=== PATIENT | male | born 1975 | race Caucasian/White ===

== ENCOUNTER → 2017-01-26 | Outpatient (CLI) | payer OTHER ==
[~2017-01-26] MED LIST: ANAPROX DS550 MG PO; DULE1ARO INH; FEROSUL325 MG PO; HYDR12.5C PO; KEFLEX500 MG PO; LEVAQUIN750 M1 PO; MONTELUKAST SOD10 MG PO; MOTRIN800 MG PO; NKHM; PREDNISONE10 MG PO; VENTOLIN H0.09 MG/AC INH; Zestril,Prinivi40 MG PO
== END | disposition home or self-care (01) ==
LOC: US 02:23
DX: N43.3 Hydrocele, unspecified (principal); N44.8 Other noninflammatory disorders of the testis

== ENCOUNTER 2019-12-22 14:25 | Inpatient (IN) | payer OTHER ==
[~2019-12-22] VITALS: Ht 165.1 cm; Wt 124.8 kg
[2019-12-22] VITALS (10 sets, daily range): BP systolic 136–270; BP diastolic 90–150
[2019-12-22 14:44] LABS: ABG BASE EXCESS -5.8 mmol/L (-2.0-2.0); ARTERIAL BLOOD GAS PH 7.205 (7.35-7.45)
--- NOTE | 2019-12-22 14:57 | NUR ---
BASED ON ABG RESULT, RESP TITRATES CPAP DOWN TO 16/8 AT 50% W/ BACKUP OF 8. PT FEELS MUCH, MUCH BETTER, RESP RATE MUCH LOWER, CARDENE STARTED FOR ELEVATED BP.
--- NOTE | 2019-12-22 15:10 | NUR ---
CARDENE TITRATED DOWN FROM 5MG TO 3MG DRIP DUE TO IMPROVEMENT OF BP (SEE)
[2019-12-22 15:20] LABS: BASO % 0.3 % (0.0-1.0); EOS # 0.3 10*3/uL (0.0-0.4); HEMATOCRIT 40.5 % (42.0-52.0); HEMOGLOBIN 12.9 g/dl (14.0-18.0); LYMPH # 1.3 10*3/uL (1.3-4.4); LYMPH % 14.9 % (27.0-41.0); MEAN CELL VOLUME 85.4 fl (80.0-94.0); MEAN CORPUSCULAR HGB 27.2 pg (27.0-31.0); MEAN CORPUSCULAR HGB CONC 31.9 g/dl (33.0-37.0); MEAN PLATELET VOLUME 9.6 fl (9.6-12.3); MONO # 0.4 10*3/uL (0.1-1.0); MONO % 4.6 % (3.0-9.0); NEUT # 6.7 10*3/uL (2.3-7.9); NEUT % 76.7 % (47.0-73.0); PLATELET COUNT AUTOMATED 264 10*3/uL (130-400); RED BLOOD COUNT 4.74 10*6/uL (4.50-5.90); RED CELL DISTRI WIDTH 13.9 % (0-14.5); WHITE BLOOD COUNT 8.7 10*3/uL (4.8-10.8)
--- NOTE | 2019-12-22 15:34 | NUR ---
SINCE TITRATION TO 3MC DRIP ON THE CARDENE, PT BP IS NOW 144/90 MANUALLY.
[2019-12-22 15:35] LABS: ALBUMIN 3.8 gm/dl (3.1-4.5); ALKALINE PHOSPHATASE 85 U/L (45-117); BUN 20 mg/dl (7-24); CHLORIDE 101 mmol/L (98-107); CREATININE 1.13 mg/dL (0.70-1.30); POTASSIUM 3.4 mmol/L (3.5-5.1); SGOT/AST 33 IU/L (3-35); SGPT/ALT 50 U/L (12-78); SODIUM 135 mmol/L (136-145); TOTAL PROTEIN 7.4 gm/dL (6.4-8.2)
--- NOTE | 2019-12-22 15:55 | NUR ---
PT ELEVATES AGAIN, CARDENE RETURNED TO INITIAL 5MG DRIP
--- NOTE | 2019-12-22 16:15 | NUR ---
BED ASSIGNED TO [facility] BUT ADMITTING DR STATES THE CTA MUST BE DONE BEFORE ADMISSION. ADMISSION ON HOLD. RESPIRATORY HERE TO ASSIST.
--- NOTE | 2019-12-22 16:18 | NUR ---
PTY TO CT. I WILL GO THERE WHEN CT IS COMPLETE AND THEN TRANSPORT TO [facility]. CARLO CASTILLO IS WITH PT IN CT NOW.
--- NOTE | 2019-12-22 16:45 | NUR ---
A 44, admitted to ICCU, under the services of KATY Joseph DO with a diagnosis of HYPERTENSIVE EMERGENCY. Chief complaint is SUDDEN ONSET SOB. Patient arrived via stretcher from ER. Monitor applied. Initial assessment completed. Vital signs taken and recorded. KATY JOSEPH DO notified of admission to the unit. Orders received. See assessment for past medical history, medications and allergies. Patient and/or family oriented to unit. [facility] visitation policy reviewed. Clothing/patient valuable form completed. PAIZ
[2019-12-22] MEDS ORDERED: NASAL RELIEF 1215 ML NAS (17:09)
[2019-12-22] MEDS ORDERED: GOOD SENSE IBU200 MG PO (17:10)
--- NOTE | 2019-12-22 17:31 | NUR ---
DR ALEXANDER NOTIFIED OF CONSULTATION. REVIEWED ORDERS, LABS, AND CTA/CXR RESULTS WITH HIM. ORDERS RECEIVED.
[2019-12-22 17:56] LABS: ABG BASE EXCESS 1.3 mmol/L (-2.0-2.0); ARTERIAL BLOOD GAS PH 7.44 (7.35-7.45)
--- NOTE | 2019-12-22 18:15 | NUR ---
ABG'S WERE REPEATED AND CALLED TO DR ALEXANDER BY RESPIRATORY THERAPY. ORDERS RECEIVED.
[2019-12-22 18:18] LABS: BILIRUBIN NEGATIVE (NEGATIVE); BLOOD NEGATIVE (NEGATIVE); CLARITY CLEAR (CLEAR); COLOR STRAW (YELLOW); GLUCOSE NEGATIVE (NEGATIVE); KETONE NEGATIVE (NEGATIVE); LEUKO ESTERASE NEGATIVE (NEGATIVE); NITRITE NEGATIVE (NEGATIVE); SPECIFIC GRAVITY 1.005 (1.005-1.030); UROBILINOGEN 0.2 E.U./dl (0.2-1.0)
[2019-12-22 18:19] LABS: EPITHELIAL CELLS 0-2
--- NOTE | 2019-12-22 18:49 | NUR ---
SALINE BOLUS #1 UP TO INFUSE.
[2019-12-23] VITALS: BP 134/84
[2019-12-23 04:00] VITALS: BP 135/90
[2019-12-23 04:53] LABS: HEMATOCRIT 37.8 % (42.0-52.0); MEAN CELL VOLUME 84.6 fl (80.0-94.0); MEAN CORPUSCULAR HGB 26.8 pg (27.0-31.0); MEAN CORPUSCULAR HGB CONC 31.7 g/dl (33.0-37.0); MEAN PLATELET VOLUME 9.5 fl (9.6-12.3); PLATELET COUNT AUTOMATED 282 10*3/uL (130-400); RED BLOOD COUNT 4.47 10*6/uL (4.50-5.90)
[2019-12-23 05:03] LABS: ACT PARTIAL THROMBO TIME 26.6 SECONDS (20.0-32.1)
[2019-12-23 05:36] LABS: ALBUMIN 3.5 gm/dl (3.1-4.5); ALKALINE PHOSPHATASE 74 U/L (45-117); BUN 17 mg/dl (7-24); CHLORIDE 106 mmol/L (98-107); CHOLESTEROL 177 mg/dL (<200); CREATININE 0.84 mg/dL (0.70-1.30); FREE T4 0.89 ng/dl (0.76-1.46); HDL CHOLESTEROL 53 mg/dl (40-60); LDL CHOLESTEROL 114 mg/dL (9-159); PHOSPHOROUS 3.1 mg/dL (2.5-4.9); SGOT/AST 17 IU/L (3-35); SGPT/ALT 48 U/L (12-78); SODIUM 138 mmol/L (136-145); TOTAL PROTEIN 7.2 gm/dL (6.4-8.2); TRIGLYCERIDES 49 mg/dl (<150); VLDL CHOLESTEROL 10 mg/dL (6-40)
[2019-12-23 05:44] LABS: PLATELET SUFFICIENCY NORMAL (NORMAL); TOTAL CELLS COUNTED 100 #CELLS
[2019-12-23 05:45] LABS: BURR CELLS FEW
[2019-12-23 07:05] LABS: VITAMIN D, 25-HYDROXY 18.1 ng/mL (30-100)
--- NOTE | 2019-12-23 07:06 | NUR ---
Shift chart check completed.24 HR chart check completed.
[2019-12-23 07:30] VITALS: BP 140/90; BP 146/80
--- NOTE | 2019-12-23 09:02 | NUR ---
ON ASSESSMENT PATIENT RESTING EASILY IN HIGH FOWLERS POSITION. RESPIRATIONS NON-LABORED. NASAL CANNULA TITRATED DOWN FROM 4L/MIN TO 2L/MIN MAINTAINING PULSE OX >92%. DR VIZCARRA HAS VISITED. MADE AWARE THAT PT REQUESTING NASAL SPRAY. ALSO MADE AWARE THAT PT HAD BEEN ON ANTIHYPERTENSIVES IN THE PAST BUT STOPPED TAKING THEM DUE TO FINANCIAL REASONS. IV FLUIDS CONTINUE AT 125/HR. SPUTUM CONTAINER AT BEDSIDE BUT PT DOES NOT HAVE A PRODUCTIVE COUGH. SEE ALL APPROPRIATE INTERVENTIONS.
--- NOTE | 2019-12-23 09:30 | NUR ---
LESLEE, NURSING SHADE CLOTH FINISHER, MADE AWARE PT HAS BEEN STEPPED DOWN TO TELEMETRY STATUS.
--- NOTE | 2019-12-23 10:33 | NUR ---
PT SLEEPING SOUNDLY AT THIS TIME. NO RESPIRATORY DISTRESS. PULSE OX 93-94% ON NC 2L/MIN.
--- NOTE | 2019-12-23 10:46 | NUR ---
REPORT TO TAHIR. WILL TRANSFER HIM WHEN HE AWAKENS.
--- NOTE | 2019-12-23 11:41 | NUR ---
TRANSFERRED IN STABLE CONDITION, VIA W/C, ON PORTABLE O2, WITH ALL OF HIS BELONGINGS TO [facility]. ORIENTED TO ROOM, CALL LIGHT, TELEPHONE, BATHROOM.
[2019-12-23 12:00] VITALS: BP 164/94
[2019-12-23 16:00] VITALS: BP 172/98
[2019-12-23 20:00] VITALS: BP 166/110
--- NOTE | 2019-12-23 20:52 | NUR ---
DR PORTILLO NOTIFIED OF PT'S BP 166/110, STATES OK TO GIVE PRN ORDER OF IV LABETOLOL
[2019-12-24] VITALS: BP 155/106
[2019-12-24 01:08] VITALS: BP 172/120
--- NOTE | 2019-12-24 01:14 | NUR ---
PT C/O HEADACHE, BP RECHECK 172/120. DR PORTILLO NOTIFIED.
[2019-12-24 05:56] VITALS: BP 180/120
--- NOTE | 2019-12-24 06:15 | NUR ---
PATIENT CALLS OUT STATES FEELING SOB ON NC, PLACED ON BIPAP AT THIS TIME. SPO2 98%
--- NOTE | 2019-12-24 06:26 | NUR ---
DR PORTILLO NOTIFIED OF PT'S C/O BACK PAIN AND NO PAIN MEDS ORDERED FOR PT. ALSO NOTIFIED OF PT'S BP. NEW ORDERS REC'D.
--- NOTE | 2019-12-24 06:44 | NUR ---
1X MORPHINE GIVEN FOR C/O PAIN TO HEAD AND BACK RATED 5/10. SIDE RAILS UP X2, CALL LIGHT IN REACH, BED IN LOW, LOCKED POS. WILL MONTIOR.
[2019-12-24 06:52] LABS: HEMATOCRIT 39.7 % (42.0-52.0); HEMOGLOBIN 12.6 g/dl (14.0-18.0); LYMPH # 0.9 10*3/uL (1.3-4.4); LYMPH % 8.3 % (27.0-41.0); MEAN CELL VOLUME 85.2 fl (80.0-94.0); MEAN CORPUSCULAR HGB CONC 31.7 g/dl (33.0-37.0); MEAN PLATELET VOLUME 9.9 fl (9.6-12.3); MONO # 0.5 10*3/uL (0.1-1.0); MONO % 4.3 % (3.0-9.0); NEUT # 9.1 10*3/uL (2.3-7.9); NEUT % 86.9 % (47.0-73.0); PLATELET COUNT AUTOMATED 307 10*3/uL (130-400); RED BLOOD COUNT 4.66 10*6/uL (4.50-5.90); RED CELL DISTRI WIDTH 14.4 % (0-14.5); WHITE BLOOD COUNT 10.4 10*3/uL (4.8-10.8)
[2019-12-24 07:15] LABS: BUN 18 mg/dl (7-24); CHLORIDE 107 mmol/L (98-107); CREATININE 0.78 mg/dL (0.70-1.30); SODIUM 137 mmol/L (136-145)
--- NOTE | 2019-12-24 09:00 | NUR ---
Adoption Manager in to talk to patient. Patient states lives at home with roommates. There are no steps in the home. Physician: huy mcclure [facility]acy: [facility] Home health services: none Patient's level of ADLs: INDEPENDENT Patient has working utilities: all working DME: none Follow-up physician's appointment after d/c: will be made by hosptalist nurse director upon discharge Does patient want to access PORTAL?: no Discharge plan discussed with patient, he states he lives at home with 2 roommates he states he is independent in adls and ambulation he states he will return home when medically stable, discussed with him not being able to affford his medication. he stated that he had insurance and was working too many hours and lost is insurance, he stated that was a year ago, he stated he works but not many hours and has [employer] insurance. he stated he was able to afford his medications due to insurance paying for them with no copay, patient denies any home needs at this time, case management will follow . COMPA ARROYO
[2019-12-24 12:00] VITALS: BP 162/100
--- NOTE | 2019-12-24 12:45 | NUR ---
PTS BLOOD PRESSURE 162/100. SPOKE WITH DR. JIM. CATAPRESS ADMINISTERED PER ORDER.
[2019-12-24 16:00] VITALS: BP 168/110
--- NOTE | 2019-12-24 16:24 | NUR ---
PT'S BLOOD PRESSURE 178/98. PULSE 106. SPOKE WITH DR. JIM. LABETALOL ADMINISTERED PER ORDER.
--- NOTE | 2019-12-24 18:28 | NUR ---
DR. JIM NOTIFIED OF PT'S BP OF 162/108
--- NOTE | 2019-12-24 19:52 | NUR ---
PATIENT IS AAOX3, RESTING IN BED WATCHING TV WITH EASY AND REGULAR RESPERS ON 2L O2 VIA NC. ASSESSMENT IS COMPLETE WITH NO C/O OR S/S OF DISTRESS NOTED AT THIS TIME. BED IS LOW, LOCKED, AND CALL LIGHT IS WITHIN REACH. MANUAL BLOOD PRESSURE 150/90, ONE TIME DOSE OF LABETALOL GIVEN. WILL CONTINUE TO MONITOR, SEE SHIFT ASSESSMENT.
[2019-12-25] VITALS (7 sets, daily range): BP systolic 140–202; BP diastolic 92–110
--- NOTE | 2019-12-25 03:37 | NUR ---
24 HR. CHART CHECK COMPLETE.
--- NOTE | 2019-12-25 04:52 | NUR ---
PATIENT C/O SEVERE SHORTNESS OF BREATH. PULSE OX 97% ON 2L VIA NC. PATIENT APPEARS TO BE HAVING PANIC ATTACK, CALL PLACED TO DR. CHASE. JOHANNE REQUESTED, SEE NEW ORDER.
--- NOTE | 2019-12-25 09:00 | NUR ---
case management visits with patient, he states he will return home when medically stable and denies any home needs
--- NOTE | 2019-12-25 11:27 | NUR ---
NOTIFIED OF NO CHANGE IN BP AFTER HYDRALAZINE
--- NOTE | 2019-12-25 11:40 | NUR ---
PHYSICAL THERAPY Attempted to see pt for evaluation however BP 202/110 pt being placed on IV hydralzine per MD notes. Spoke with nursing will defer therapy at this time until BP stable, will follow at a later date. Naomie Rasmussen PT
--- NOTE | 2019-12-25 14:49 | NUR ---
AWARE OF CONSULT
--- NOTE | 2019-12-25 23:56 | NUR ---
PATIENT AWAKE PLAYING ON PHONE, NO NEEDS VOICED AT THIS TIME.
[2019-12-26] VITALS: BP 149/101
--- NOTE | 2019-12-26 01:08 | NUR ---
PATIENT IS SLEEPING WITH EASY AND REGULAR RESPERS ON 2L O2 VIA NC. CALL LIGHT IS WITHIN REACH.
--- NOTE | 2019-12-26 01:53 | NUR ---
PATIENT SLEEPING WITH EASY AND REGULAR RESPERS ON 2L O2 VIA NC. CALL LIGHT IS WITHIN REACH.
--- NOTE | 2019-12-26 03:00 | NUR ---
PATIENT IS SLEEPING WITH EASY AND REGULAR RESPERS ON 2L O2 VIA NC. CALL LIGHT IS WITHIN REACH.
[2019-12-26 08:00] VITALS: BP 178/106
--- NOTE | 2019-12-26 09:00 | NUR ---
case management visits with patient, he states he will return home when medically stable and denies any home needs
--- NOTE | 2019-12-26 11:00 | NUR ---
Physical Therapy evaluation completed on 4th floor with full evaluation to follow. Recommend physical therapy per plan of care and Home w supportive services upon discharge. Thank you for this referral. Naomie Rasmussen PT
[2019-12-26 12:00] VITALS: BP 149/104
--- NOTE | 2019-12-26 13:55 | NUR ---
PHYSICAL THERAPY Patient seen this pm 1;1 for therapy visit and was sitting up in bedside chair upon therapist arrival. Patient identified by name / and was very friendly this afternoon, eager to get up and move around. Patient reported no new c/o's since initial evaluation and transfers sit to stand SBA x 1. Patient ambulates without AD, ad david in hallway, 150'x 2, demonstrating slight R side deviation x 1 episode, then was able to correct following v/c for visual fixation technique. Patient also demonstrated increaed fatigue and needed brief standing rest break < 30 seconds prior to return to bedside chair. Patient resting SpO2 96%, HR 98 bpm and recorded following gait ex at 93% SpO2, HR 118 bpm. After seated rest break SpO2 98%, HR 110 bpm. Patient remained in chair with call light, tray table and telephone. Will continue per POC as tolerated, total treatment time 18 minutes. Keven Newman, KILN PLACER
[2019-12-26 16:00] VITALS: BP 154/104
--- NOTE | 2019-12-26 17:10 | NUR ---
NOTIFIED DR JIM OF PT BP 154/104 WITH HR 104 PER CM.
[2019-12-26 20:00] VITALS: BP 152/95
--- NOTE | 2019-12-26 23:30 | NUR ---
Pt is not in need of his PRN BiPap order at this time.
[2019-12-27] VITALS: BP 145/90
[2019-12-27 06:25] LABS: BASO % 0.1 % (0.0-1.0); EOS # 0.1 10*3/uL (0.0-0.4); HEMATOCRIT 42.2 % (42.0-52.0); HEMOGLOBIN 13.8 g/dl (14.0-18.0); LYMPH # 2.6 10*3/uL (1.3-4.4); LYMPH % 31.6 % (27.0-41.0); MEAN CELL VOLUME 83.6 fl (80.0-94.0); MEAN CORPUSCULAR HGB 27.3 pg (27.0-31.0); MEAN CORPUSCULAR HGB CONC 32.7 g/dl (33.0-37.0); MEAN PLATELET VOLUME 9.6 fl (9.6-12.3); MONO # 0.7 10*3/uL (0.1-1.0); MONO % 9.1 % (3.0-9.0); NEUT # 4.7 10*3/uL (2.3-7.9); NEUT % 57.8 % (47.0-73.0); PLATELET COUNT AUTOMATED 273 10*3/uL (130-400); RED BLOOD COUNT 5.05 10*6/uL (4.50-5.90); RED CELL DISTRI WIDTH 14.5 % (0-14.5); WHITE BLOOD COUNT 8.1 10*3/uL (4.8-10.8)
[2019-12-27 08:00] VITALS: BP 158/114
--- NOTE | 2019-12-27 09:00 | NUR ---
case management visits with patient, he will return home when medically stable, [facility] [place] [place], tenative discharge is for today, case management will follow
[2019-12-27 11:00] VITALS: BP 158/100
--- NOTE | 2019-12-27 11:47 | NUR ---
DR MARCUM ROUNDED AND NOTIFIED OF PT BP. MANUAL BP TAKEN AT THIS TIME ON RIGHT ARM 168/120. LEFT ARM 154/104. PER DR MARCUM'S NEW ORDER THIS NURSE ADMINISTERED THE PRN 0.1 MG CLONIDINE.
[2019-12-27 12:37] VITALS: BP 128/88
--- NOTE | 2019-12-27 12:51 | NUR ---
PHYSICAL THERAPY TREATMENT TIME: 12:42 PM - 1:00 PM 18 MINUTES TOTAL Patient presented to therapy in sitting in bedside chair and report of no pain and feeling good. B/P 120/88. Patient is not on spO2. Patient gives informed consent for treatment. Patient was identified by name and on wristband. Patient completed sit to stand from low chair with SBA. Patient ambulated a total of 500+ ft. around entire 4th floor with Close Supervision and no assistive device. Patient ascended and descended x 10 steps with use of hand rail on one side with SBA. Patient was left in bedside chair with call light within reach. Patient was 1:1 with this PROCESS TECH for 18 minutes total. BRIGID GIRALDO PROCESS TECH
[2019-12-27] MEDS ORDERED: PREDNISONE10 MG PO (12:59)
[2019-12-27] MEDS ORDERED: DOXYCYCLINE100 M3 PO (12:59)
[2019-12-27] MEDS ORDERED: AMLODIPINE BESYL5 MG PO (12:59)
[2019-12-27] MEDS ORDERED: VITAMIN D350 MC2 PO (12:59)
[2019-12-27] MEDS ORDERED: K-TAB10 MEQ PO (13:00)
[2019-12-27] MEDS ORDERED: LASIX20 MG PO (13:00)
--- NOTE | 2019-12-27 15:09 | NUR ---
Discharge instructions reviewed with patient/family. Patient receptive and verbalizes understanding. Follow-up care arranged. Written instructions given to patient/family. FABIOLA POLLARD
[2019-12-28 08:12] LABS: ADENOVIRUS Negative (Negative); INFLUENZA A Negative (Negative); INFLUENZA B Negative (Negative); METAPNEUMOVIRUS Negative (Negative); PARAINFLUENZA 1 Negative (Negative); PARAINFLUENZA 2 Negative (Negative); PARAINFLUENZA 3 Negative (Negative); RHINOVIRUS Negative (Negative); RSV A Negative (Negative); RSV B Negative (Negative)
--- NOTE | 2019-12-31 07:45 | NUR ---
PHYSICAL THERAPY CO-SIGN I approve of the Physical Therapy notes written above. Naomie Rasmussen PT
== END 2019-12-27 15:09 | disposition home or self-care (01) | DRG 720 ==
LOC: ED 14:25 → EDHOLD 15:58 → 4E 15:58 → ICCU 16:08 → 4E 12-23 11:41
PROVIDERS: Emergency Medicine; Internal Medicine; Internal Medicine Critical Care Medicine; ADMIT Internal Medicine
PROC: 5A09357 Assistance with Respiratory Ventilation, Less than 24 Consecutive Hours, Continuous Positive Airway Pressure (ICD-10-PCS; principal; 2019-12-22)
PROC: 5A09357 Assistance with Respiratory Ventilation, Less than 24 Consecutive Hours, Continuous Positive Airway Pressure (ICD-10-PCS; 2019-12-23)
DX: A41.9 Sepsis, unspecified organism (principal); J96.01 Acute respiratory failure with hypoxia; R65.20 Severe sepsis without septic shock; E66.01 Morbid (severe) obesity due to excess calories; I16.1 Hypertensive emergency; F12.129 Cannabis abuse with intoxication, unspecified; F32.9 Major depressive disorder, single episode, unspecified; I11.0 Hypertensive heart disease with heart failure; I50.32 Chronic diastolic (congestive) heart failure; J96.02 Acute respiratory failure with hypercapnia; J18.9 Pneumonia, unspecified organism; E87.1 Hypo-osmolality and hyponatremia; E87.6 Hypokalemia; R73.9 Hyperglycemia, unspecified; D64.9 Anemia, unspecified; J45.21 Mild intermittent asthma with (acute) exacerbation; J44.1 Chronic obstructive pulmonary disease with (acute) exacerbation; J44.0 Chronic obstructive pulmonary disease with (acute) lower respiratory infection; J40 Bronchitis, not specified as acute or chronic; G47.33 Obstructive sleep apnea (adult) (pediatric); Z87.891 Personal history of nicotine dependence; Z68.43 Body mass index [BMI] 50.0-59.9, adult; Z88.6 Allergy status to analgesic agent; Z88.8 Allergy status to other drugs, medicaments and biological substances; Z79.899 Other long term (current) drug therapy; Z83.6 Family history of other diseases of the respiratory system; Z80.1 Family history of malignant neoplasm of trachea, bronchus and lung; Z80.3 Family history of malignant neoplasm of breast; Z71.3 Dietary counseling and surveillance

== ENCOUNTER → 2020-04-04 | Outpatient (CLI) | payer OTHER ==
[~2020-04-04] MED LIST changes: +AMLODIPINE BESYL5 MG PO; +DOXYCYCLINE100 M3 PO; +GOOD SENSE IBU200 MG PO; +K-TAB10 MEQ PO; +LASIX20 MG PO; +NASAL RELIEF 1215 ML NAS; +VITAMIN D350 MC2 PO
== END | disposition home or self-care (01) ==
LOC: CP 10:25
DX: R06.02 Shortness of breath (principal); Z87.891 Personal history of nicotine dependence

== ENCOUNTER → 2020-08-01 | Outpatient (CLI) | payer OTHER | END | disposition home or self-care (01) | LOC: COVID19 04:47 | PROVIDERS: ATTEND Family Medicine | DX: Z20.828 Contact with and (suspected) exposure to other viral communicable diseases (principal) ==

== ENCOUNTER 2020-08-26 12:03 | Inpatient (IN) | payer OTHER ==
[~2020-08-26] VITALS: Ht 165.1 cm; Wt 126.1 kg
[2020-08-26] VITALS (7 sets, daily range): BP systolic 145–176; BP diastolic 95–116
[2020-08-26 13:23] LABS: BASO % 0.3 % (0.0-1.0); EOS # 0.1 10*3/uL (0.0-0.4); EOS % 0.7 % (1.0-4.0); HEMATOCRIT 43.1 % (42.0-52.0); LYMPH # 0.7 10*3/uL (1.3-4.4); LYMPH % 9.2 % (27.0-41.0); MEAN CELL VOLUME 81.5 fl (80.0-94.0); MEAN CORPUSCULAR HGB 25.9 pg (27.0-31.0); MEAN CORPUSCULAR HGB CONC 31.8 g/dl (33.0-37.0); MEAN PLATELET VOLUME 8.7 fl (9.6-12.3); MONO # 0.7 10*3/uL (0.1-1.0); MONO % 10.5 % (3.0-9.0); NEUT # 5.6 10*3/uL (2.3-7.9); NEUT % 78.9 % (47.0-73.0); PLATELET COUNT AUTOMATED 293 10*3/uL (130-400); RED BLOOD COUNT 5.29 10*6/uL (4.50-5.90); RED CELL DISTRI WIDTH 14.5 % (0-14.5); WHITE BLOOD COUNT 7.1 10*3/uL (4.8-10.8)
[2020-08-26 13:34] LABS: ACT PARTIAL THROMBO TIME 29.1 SECONDS (20.0-32.1)
[2020-08-26 13:43] LABS: ALBUMIN 3.9 gm/dl (3.1-4.5); ALKALINE PHOSPHATASE 84 U/L (45-117); BUN 11 mg/dl (7-24); CHLORIDE 103 mmol/L (98-107); POTASSIUM 3.5 mmol/L (3.5-5.1); SGOT/AST 18 IU/L (3-35); SGPT/ALT 42 U/L (12-78); SODIUM 137 mmol/L (136-145); TOTAL PROTEIN 8.1 gm/dL (6.4-8.2)
[2020-08-26 13:47] LABS: TROPONIN I < 0.015 ng/ml (<0.045)
[2020-08-26] MEDS ORDERED: K-TAB10 MEQ PO (18:47)
[2020-08-26] MEDS ORDERED: FLONASE ALLERG9.9 ML NAS (18:48)
[2020-08-26] MEDS ORDERED: ZESTRIL20 MG PO (18:48)
[2020-08-27] VITALS: BP 137/74
[2020-08-27 06:25] LABS: BASO % 0.2 % (0.0-1.0); HEMATOCRIT 42.1 % (42.0-52.0); LYMPH # 0.7 10*3/uL (1.3-4.4); LYMPH % 11.6 % (27.0-41.0); MEAN CELL VOLUME 84.4 fl (80.0-94.0); MEAN CORPUSCULAR HGB 26.5 pg (27.0-31.0); MEAN CORPUSCULAR HGB CONC 31.4 g/dl (33.0-37.0); MEAN PLATELET VOLUME 9.1 fl (9.6-12.3); MONO # 0.2 10*3/uL (0.1-1.0); MONO % 3.5 % (3.0-9.0); NEUT # 5.1 10*3/uL (2.3-7.9); PLATELET COUNT AUTOMATED 284 10*3/uL (130-400); RED BLOOD COUNT 4.99 10*6/uL (4.50-5.90); RED CELL DISTRI WIDTH 14.7 % (0-14.5); WHITE BLOOD COUNT 6.1 10*3/uL (4.8-10.8)
[2020-08-27 06:49] LABS: ALBUMIN 3.7 gm/dl (3.1-4.5); BUN 16 mg/dl (7-24); CHLORIDE 102 mmol/L (98-107); CREATININE 0.88 mg/dL (0.70-1.30); SGOT/AST 19 IU/L (3-35); SGPT/ALT 40 U/L (12-78); SODIUM 135 mmol/L (136-145)
[2020-08-27 06:51] LABS: ALKALINE PHOSPHATASE 77 U/L (45-117); TOTAL PROTEIN 7.9 gm/dL (6.4-8.2)
[2020-08-27 08:00] VITALS: BP 138/80
[2020-08-27 12:00] VITALS: BP 145/86
[2020-08-27 16:00] VITALS: BP 165/98
[2020-08-27 20:00] VITALS: BP 157/110
[2020-08-28] VITALS (9 sets, daily range): BP systolic 141–172; BP diastolic 83–106
[2020-08-29 00:30] VITALS: BP 148/92
[2020-08-29 08:00] VITALS: BP 173/109
[2020-08-29 11:00] VITALS: BP 162/98
[2020-08-29] MEDS ORDERED: PREDNISONE10 MG PO (12:17)
[2020-08-29] MEDS ORDERED: Zestril,Prinivi40 MG PO (12:17)
== END 2020-08-29 13:17 | disposition home or self-care (01) | DRG 141 ==
LOC: ED 12:03 → EDHOLD 14:45 → 5E 14:45
PROVIDERS: Emergency Medicine; Student in an Organized Health Care Education/Training Program; ADMIT Internal Medicine; ATTEND Internal Medicine
DX: J45.901 Unspecified asthma with (acute) exacerbation (principal); J96.91 Respiratory failure, unspecified with hypoxia; E83.41 Hypermagnesemia; D64.9 Anemia, unspecified; R73.9 Hyperglycemia, unspecified; F32.9 Major depressive disorder, single episode, unspecified; R00.0 Tachycardia, unspecified; F12.90 Cannabis use, unspecified, uncomplicated; E66.01 Morbid (severe) obesity due to excess calories; I50.32 Chronic diastolic (congestive) heart failure; I11.0 Hypertensive heart disease with heart failure; Z68.42 Body mass index [BMI] 45.0-49.9, adult; Z87.19 Personal history of other diseases of the digestive system; Z87.891 Personal history of nicotine dependence; Z88.8 Allergy status to other drugs, medicaments and biological substances; Z88.6 Allergy status to analgesic agent; Z80.1 Family history of malignant neoplasm of trachea, bronchus and lung; Z80.3 Family history of malignant neoplasm of breast; Z82.5 Family history of asthma and other chronic lower respiratory diseases; Z82.3 Family history of stroke; Z82.49 Family history of ischemic heart disease and other diseases of the circulatory system; Z87.01 Personal history of pneumonia (recurrent); Z79.899 Other long term (current) drug therapy

== ENCOUNTER 2020-11-25 13:47 | Emergency (ER) | payer OTHER ==
[~2020-11-25] VITALS: Wt 127.0 kg
[~2020-11-25 13:47] MED LIST changes: +FLONASE ALLERG9.9 ML NAS; +ZESTRIL20 MG PO
[2020-11-25 14:01] LABS: BASO % 0.5 % (0.0-1.0); EOS # 0.3 10*3/uL (0.0-0.4); EOS % 4.2 % (1.0-4.0); HEMATOCRIT 40.1 % (42.0-52.0); LYMPH # 1.7 10*3/uL (1.3-4.4); LYMPH % 27.9 % (27.0-41.0); MEAN CELL VOLUME 83.7 fl (80.0-94.0); MEAN CORPUSCULAR HGB 26.9 pg (27.0-31.0); MEAN CORPUSCULAR HGB CONC 32.2 g/dl (33.0-37.0); MONO # 0.5 10*3/uL (0.1-1.0); MONO % 8.4 % (3.0-9.0); NEUT # 3.6 10*3/uL (2.3-7.9); NEUT % 58.4 % (47.0-73.0); PLATELET COUNT AUTOMATED 286 10*3/uL (130-400); RED BLOOD COUNT 4.79 10*6/uL (4.50-5.90); RED CELL DISTRI WIDTH 14.6 % (0-14.5); WHITE BLOOD COUNT 6.2 10*3/uL (4.8-10.8)
[2020-11-25 14:18] LABS: ACT PARTIAL THROMBO TIME 27.7 SECONDS (20.0-32.1); ALBUMIN 3.5 gm/dl (3.1-4.5); ALKALINE PHOSPHATASE 75 U/L (45-117); BUN 13 mg/dl (7-24); CHLORIDE 105 mmol/L (98-107); CREATININE 0.85 mg/dL (0.70-1.30); INTERNATIONAL NORM RATIO 0.9 (2.0-3.5); POTASSIUM 3.4 mmol/L (3.5-5.1); SGOT/AST 13 IU/L (3-35); SGPT/ALT 36 U/L (12-78); SODIUM 138 mmol/L (136-145); TOTAL PROTEIN 6.9 gm/dL (6.4-8.2)
[2020-11-25 14:19] LABS: TROPONIN I < 0.015 ng/ml (<0.045)
[2020-11-25] MEDS ORDERED: PREDNISONE50 MG PO (16:41)
== END 2020-11-25 17:23 | disposition home or self-care (01) ==
LOC: ED 13:47
PROVIDERS: Emergency Medicine
DX: J45.901 Unspecified asthma with (acute) exacerbation (principal); I10 Essential (primary) hypertension; F31.9 Bipolar disorder, unspecified; Z88.8 Allergy status to other drugs, medicaments and biological substances; Z79.899 Other long term (current) drug therapy; Z98.890 Other specified postprocedural states; Z20.822 Contact with and (suspected) exposure to COVID-19; Z87.891 Personal history of nicotine dependence

== ENCOUNTER 2022-01-26 22:57 | Emergency (ER) | payer OTHER ==
[~2022-01-26] VITALS: Ht 157.4 cm; Wt 93.9 kg
[~2022-01-26 22:57] MED LIST changes: +PREDNISONE50 MG PO
[2022-01-26 23:54] LABS: BASO % 0.5 % (0.0-1.0); EOS # 0.1 10*3/uL (0.0-0.4); EOS % 1.7 % (1.0-4.0); HEMATOCRIT 38.9 % (42.0-52.0); LYMPH # 1.6 10*3/uL (1.3-4.4); LYMPH % 20.3 % (27.0-41.0); MEAN CELL VOLUME 81.7 fl (80.0-94.0); MEAN CORPUSCULAR HGB 26.9 pg (27.0-31.0); MEAN CORPUSCULAR HGB CONC 32.9 g/dl (33.0-37.0); MEAN PLATELET VOLUME 8.6 fl (9.6-12.3); MONO # 0.5 10*3/uL (0.1-1.0); NEUT # 5.4 10*3/uL (2.3-7.9); NEUT % 70.1 % (47.0-73.0); PLATELET COUNT AUTOMATED 276 10*3/uL (130-400); RED BLOOD COUNT 4.76 10*6/uL (4.50-5.90); RED CELL DISTRI WIDTH 15.1 % (0-14.5); WHITE BLOOD COUNT 7.7 10*3/uL (4.8-10.8)
[2022-01-27 00:09] LABS: ALKALINE PHOSPHATASE 63 U/L (45-117); BUN 15 mg/dl (7-24); CHLORIDE 103 mmol/L (98-107); POTASSIUM 3.7 mmol/L (3.5-5.1); SGOT/AST 20 IU/L (3-35); SGPT/ALT 38 U/L (12-78); SODIUM 137 mmol/L (136-145)
[2022-01-27 00:30] LABS: BILIRUBIN Negative (Negative); BLOOD Negative (Negative); CLARITY Clear (Clear); COLOR Yellow (Yellow); GLUCOSE Negative (Negative); KETONE Trace (Negative); LEUKO ESTERASE Negative (Negative); NITRITE Negative (Negative); PH 5.5 (4.5-8.0); SPECIFIC GRAVITY 1.025 (1.001-1.030)
[2022-01-27] MEDS ORDERED: CYCLOBENZAPRINE10 MG PO (03:36)
[2022-01-27] MEDS ORDERED: MEDROL DOSEPAK4 MG PO (03:36)
== END 2022-01-27 03:57 | disposition home or self-care (01) ==
LOC: ED 22:57
PROVIDERS: Emergency Medicine
DX: M54.32 Sciatica, left side (principal); J45.909 Unspecified asthma, uncomplicated; Z88.8 Allergy status to other drugs, medicaments and biological substances; Z88.6 Allergy status to analgesic agent; Z79.899 Other long term (current) drug therapy; Z90.89 Acquired absence of other organs; Z98.890 Other specified postprocedural states

== ENCOUNTER → 2022-02-08 | Outpatient (CLI) | payer OTHER ==
[~2022-02-08] MED LIST changes: +CYCLOBENZAPRINE10 MG PO; +MEDROL DOSEPAK4 MG PO
== END | disposition home or self-care (01) ==
LOC: RAD 11:20
PROVIDERS: ATTEND Student in an Organized Health Care Education/Training Program
DX: M51.37 Other intervertebral disc degeneration, lumbosacral region (principal); M51.34 Other intervertebral disc degeneration, thoracic region

== ENCOUNTER 2022-09-26 12:47 | Inpatient (IN) | payer OTHER ==
[~2022-09-26] VITALS: Ht 165.1 cm; Wt 133.6 kg
[2022-09-26 12:55] VITALS: BP 145/92
[2022-09-26 13:20] LABS: BASO % 0.4 % (0.0-1.0); EOS # 0.1 10*3/uL (0.0-0.4); EOS % 1.9 % (1.0-4.0); HEMATOCRIT 41.1 % (42.0-52.0); LYMPH % 20.1 % (27.0-41.0); MEAN CELL VOLUME 85.3 fl (80.0-94.0); MEAN CORPUSCULAR HGB CONC 32.8 g/dl (33.0-37.0); MEAN PLATELET VOLUME 8.8 fl (9.6-12.3); MONO # 0.7 10*3/uL (0.1-1.0); MONO % 13.5 % (3.0-9.0); NEUT # 3.1 10*3/uL (2.3-7.9); NEUT % 63.9 % (47.0-73.0); PLATELET COUNT AUTOMATED 244 10*3/uL (130-400); RED BLOOD COUNT 4.82 10*6/uL (4.50-5.90); RED CELL DISTRI WIDTH 14.9 % (0-14.5); WHITE BLOOD COUNT 4.8 10*3/uL (4.8-10.8)
[2022-09-26] MEDS ORDERED: NORVASC10 MG PO (13:34)
[2022-09-26] MEDS ORDERED: NAPROXEN500 M1 PO (13:34)
[2022-09-26] MEDS ORDERED: NEURONTIN300 MG PO (13:35)
[2022-09-26 13:49] LABS: ALKALINE PHOSPHATASE 65 U/L (46-116); BUN 12 mg/dl (9-23); CHLORIDE 103 mmol/L (98-107); CREATININE 0.77 mg/dL (0.70-1.30); POTASSIUM 3.5 mmol/L (3.4-5.1); SGPT/ALT 40 U/L (10-49); SODIUM 139 mmol/L (136-145)
[2022-09-26 18:52] VITALS: BP 149/104
[2022-09-26 22:59] VITALS: BP 144/81
[2022-09-27 05:28] LABS: ALKALINE PHOSPHATASE 70 U/L (46-116); BUN 16 mg/dl (9-23); CHLORIDE 101 mmol/L (98-107); CREATININE 0.74 mg/dL (0.70-1.30); POTASSIUM 4.1 mmol/L (3.4-5.1); SGPT/ALT 43 U/L (10-49); SODIUM 138 mmol/L (136-145); TOTAL PROTEIN 7.4 gm/dL (6.0-8.0)
[2022-09-27 06:24] LABS: BASO % 0.2 % (0.0-1.0); HEMATOCRIT 43.9 % (42.0-52.0); LYMPH # 0.6 10*3/uL (1.3-4.4); LYMPH % 13.1 % (27.0-41.0); MEAN CELL VOLUME 85.4 fl (80.0-94.0); MEAN CORPUSCULAR HGB 26.8 pg (27.0-31.0); MEAN CORPUSCULAR HGB CONC 31.4 g/dl (33.0-37.0); MEAN PLATELET VOLUME 9.3 fl (9.6-12.3); MONO # 0.1 10*3/uL (0.1-1.0); MONO % 1.7 % (3.0-9.0); NEUT % 84.6 % (47.0-73.0); PLATELET COUNT AUTOMATED 297 10*3/uL (130-400); RED BLOOD COUNT 5.14 10*6/uL (4.50-5.90); RED CELL DISTRI WIDTH 14.6 % (0-14.5); WHITE BLOOD COUNT 4.7 10*3/uL (4.8-10.8)
[2022-09-27 07:55] VITALS: BP 164/104
[2022-09-27 11:22] VITALS: BP 134/100
[2022-09-27 16:22] VITALS: BP 152/103
[2022-09-27 19:45] VITALS: BP 150/100
[2022-09-27 22:40] VITALS: BP 134/83
[2022-09-28 07:24] LABS: BASO % 0.1 % (0.0-1.0); HEMATOCRIT 42.6 % (42.0-52.0); LYMPH # 0.8 10*3/uL (1.3-4.4); LYMPH % 8.7 % (27.0-41.0); MEAN CELL VOLUME 86.2 fl (80.0-94.0); MEAN CORPUSCULAR HGB 28.1 pg (27.0-31.0); MEAN CORPUSCULAR HGB CONC 32.6 g/dl (33.0-37.0); MEAN PLATELET VOLUME 9.2 fl (9.6-12.3); MONO # 0.2 10*3/uL (0.1-1.0); MONO % 1.9 % (3.0-9.0); NEUT # 8.5 10*3/uL (2.3-7.9); PLATELET COUNT AUTOMATED 295 10*3/uL (130-400); RED BLOOD COUNT 4.94 10*6/uL (4.50-5.90); RED CELL DISTRI WIDTH 14.9 % (0-14.5); WHITE BLOOD COUNT 9.5 10*3/uL (4.8-10.8)
[2022-09-28 07:45] LABS: BUN 22 mg/dl (9-23); CHLORIDE 102 mmol/L (98-107); CREATININE 0.83 mg/dL (0.70-1.30); POTASSIUM 4.4 mmol/L (3.4-5.1); SODIUM 139 mmol/L (136-145)
[2022-09-28 12:00] VITALS: BP 139/96
[2022-09-28 16:00] VITALS: BP 164/90
[2022-09-28 17:41] VITALS: BP 156/86
[2022-09-28 20:00] VITALS: BP 152/88
[2022-09-29] VITALS (10 sets, daily range): BP systolic 131–180; BP diastolic 84–110
[2022-09-30] VITALS: BP 170/100
[2022-09-30 07:43] LABS: BASO % 0.1 % (0.0-1.0); HEMATOCRIT 39.6 % (42.0-52.0); LYMPH # 1.1 10*3/uL (1.3-4.4); LYMPH % 12.6 % (27.0-41.0); MEAN CELL VOLUME 83.2 fl (80.0-94.0); MEAN CORPUSCULAR HGB 27.7 pg (27.0-31.0); MEAN CORPUSCULAR HGB CONC 33.3 g/dl (33.0-37.0); MEAN PLATELET VOLUME 9.2 fl (9.6-12.3); MONO # 0.4 10*3/uL (0.1-1.0); MONO % 5.1 % (3.0-9.0); NEUT # 6.8 10*3/uL (2.3-7.9); PLATELET COUNT AUTOMATED 279 10*3/uL (130-400); RED BLOOD COUNT 4.76 10*6/uL (4.50-5.90); RED CELL DISTRI WIDTH 14.6 % (0-14.5); WHITE BLOOD COUNT 8.4 10*3/uL (4.8-10.8)
[2022-09-30 07:56] LABS: BUN 26 mg/dl (9-23); CHLORIDE 102 mmol/L (98-107); CREATININE 0.64 mg/dL (0.70-1.30); POTASSIUM 4.4 mmol/L (3.4-5.1); SODIUM 138 mmol/L (136-145)
[2022-09-30 08:00] VITALS: BP 151/108
[2022-09-30 12:00] VITALS: BP 143/106
[2022-09-30 16:00] VITALS: BP 141/72
[2022-09-30 20:00] VITALS: BP 154/96
[2022-10-01] VITALS: BP 132/80
[2022-10-01 07:00] LABS: BASO % 0.1 % (0.0-1.0); HEMATOCRIT 39.4 % (42.0-52.0); LYMPH % 22.9 % (27.0-41.0); MEAN CELL VOLUME 84.4 fl (80.0-94.0); MEAN CORPUSCULAR HGB 27.6 pg (27.0-31.0); MEAN CORPUSCULAR HGB CONC 32.7 g/dl (33.0-37.0); MEAN PLATELET VOLUME 9.1 fl (9.6-12.3); MONO % 11.6 % (3.0-9.0); NEUT # 5.6 10*3/uL (2.3-7.9); NEUT % 64.4 % (47.0-73.0); PLATELET COUNT AUTOMATED 251 10*3/uL (130-400); RED BLOOD COUNT 4.67 10*6/uL (4.50-5.90); RED CELL DISTRI WIDTH 14.7 % (0-14.5); WHITE BLOOD COUNT 8.7 10*3/uL (4.8-10.8)
[2022-10-01 07:13] LABS: BUN 24 mg/dl (9-23); CHLORIDE 102 mmol/L (98-107); CREATININE 0.66 mg/dL (0.70-1.30); SODIUM 138 mmol/L (136-145)
[2022-10-01 08:00] VITALS: BP 144/106
[2022-10-01 12:00] VITALS: BP 154/92
[2022-10-01] MEDS ORDERED: DOXYCYCLINE HY100 M3 PO (14:07)
[2022-10-01] MEDS ORDERED: PREDNISONE10 MG PO (14:07)
[2022-10-01] MEDS ORDERED: 'CLONIDINE0.1 MG PO (14:07)
[2022-10-05 18:06] LABS: METANEPHRINE, PLASMA <10.0 pg/mL (0.0-88.0); NORMETANEPHRINE, PLASMA 37.2 pg/mL (0.0-218.9)
[2022-10-06 11:07] LABS: RENIN ACTIVITY (PLASMA) 2.292 ng/mL/hr (0.167-5.380)
== END 2022-10-01 15:00 | disposition home or self-care (01) | DRG 140 ==
LOC: ED 12:47 → EDHOLD 14:21 → 5E 14:21 → EDHOLD 14:50 → 5E 09-27 20:00
PROVIDERS: Family Medicine; Student in an Organized Health Care Education/Training Program; ADMIT Internal Medicine; ATTEND Internal Medicine
PROC: 5A09357 Assistance with Respiratory Ventilation, Less than 24 Consecutive Hours, Continuous Positive Airway Pressure (ICD-10-PCS; principal; 2022-09-27)
PROC: 5A09357 Assistance with Respiratory Ventilation, Less than 24 Consecutive Hours, Continuous Positive Airway Pressure (ICD-10-PCS; 2022-09-28)
PROC: 5A09357 Assistance with Respiratory Ventilation, Less than 24 Consecutive Hours, Continuous Positive Airway Pressure (ICD-10-PCS; 2022-09-30)
PROC: 5A09357 Assistance with Respiratory Ventilation, Less than 24 Consecutive Hours, Continuous Positive Airway Pressure (ICD-10-PCS; 2022-10-01)
DX: J44.1 Chronic obstructive pulmonary disease with (acute) exacerbation (principal); J96.01 Acute respiratory failure with hypoxia; J45.901 Unspecified asthma with (acute) exacerbation; I50.32 Chronic diastolic (congestive) heart failure; E66.01 Morbid (severe) obesity due to excess calories; I11.0 Hypertensive heart disease with heart failure; D64.9 Anemia, unspecified; R73.9 Hyperglycemia, unspecified; F17.210 Nicotine dependence, cigarettes, uncomplicated; F12.10 Cannabis abuse, uncomplicated; E55.9 Vitamin D deficiency, unspecified; F32.A Depression, unspecified; G47.33 Obstructive sleep apnea (adult) (pediatric); Z80.1 Family history of malignant neoplasm of trachea, bronchus and lung; Z80.3 Family history of malignant neoplasm of breast; Z83.6 Family history of other diseases of the respiratory system; Z88.8 Allergy status to other drugs, medicaments and biological substances; Z68.42 Body mass index [BMI] 45.0-49.9, adult

== ENCOUNTER → 2022-10-04 | Outpatient (CLI) | payer OTHER ==
[~2022-10-04] MED LIST changes: +'CLONIDINE0.1 MG PO; +DOXYCYCLINE HY100 M3 PO; +NAPROXEN500 M1 PO; +NEURONTIN300 MG PO; +NORVASC10 MG PO
[2022-10-04 11:35] LABS: BASO % 0.1 % (0.0-1.0); EOS # 0.1 10*3/uL (0.0-0.4); EOS % 0.5 % (1.0-4.0); HEMATOCRIT 41.7 % (42.0-52.0); LYMPH # 2.2 10*3/uL (1.3-4.4); LYMPH % 19.6 % (27.0-41.0); MEAN CELL VOLUME 80.7 fl (80.0-94.0); MEAN CORPUSCULAR HGB 27.3 pg (27.0-31.0); MEAN CORPUSCULAR HGB CONC 33.8 g/dl (33.0-37.0); MONO # 0.8 10*3/uL (0.1-1.0); MONO % 7.4 % (3.0-9.0); NEUT # 7.9 10*3/uL (2.3-7.9); NEUT % 71.5 % (47.0-73.0); PLATELET COUNT AUTOMATED 276 10*3/uL (130-400); RED BLOOD COUNT 5.17 10*6/uL (4.50-5.90); RED CELL DISTRI WIDTH 14.3 % (0-14.5)
[2022-10-04 11:55] LABS: ALKALINE PHOSPHATASE 55 U/L (46-116); BUN 20 mg/dl (9-23); CHLORIDE 101 mmol/L (98-107); CREATININE 0.75 mg/dL (0.70-1.30); SGPT/ALT 32 U/L (10-49); SODIUM 138 mmol/L (136-145); TOTAL PROTEIN 6.4 gm/dL (6.0-8.0)
== END | disposition home or self-care (01) ==
LOC: LAB 11:02
PROVIDERS: ATTEND Internal Medicine
DX: J96.01 Acute respiratory failure with hypoxia (principal); R74.01 Elevation of levels of liver transaminase levels; R73.9 Hyperglycemia, unspecified; D64.9 Anemia, unspecified

== ENCOUNTER → 2022-12-29 | Outpatient (CLI) | payer OTHER | END | disposition home or self-care (01) | LOC: LAB 12:17 | PROVIDERS: ATTEND Family Medicine | DX: D64.9 Anemia, unspecified (principal) ==

== ENCOUNTER → 2023-08-22 | Day surgery (SDC) | payer OTHER ==
[~2023-08-22] VITALS: Ht 160 cm; Wt 105.7 kg
[2023-08-22 10:10] VITALS: BP 98/65
[2023-08-22 11:55] VITALS: BP 97/65
[2023-08-22 12:10] VITALS: BP 95/66
[2023-08-22 12:25] VITALS: BP 108/75
== END | disposition home or self-care (01) ==
LOC: SDC 08-18 10:15
PROVIDERS: ATTEND Surgery
DX: Z12.11 Encounter for screening for malignant neoplasm of colon (principal); I10 Essential (primary) hypertension; J45.909 Unspecified asthma, uncomplicated; J44.9 Chronic obstructive pulmonary disease, unspecified; F41.9 Anxiety disorder, unspecified; F32.A Depression, unspecified; G47.30 Sleep apnea, unspecified; F17.200 Nicotine dependence, unspecified, uncomplicated; Z79.899 Other long term (current) drug therapy; Z90.89 Acquired absence of other organs; Z98.890 Other specified postprocedural states; Z88.8 Allergy status to other drugs, medicaments and biological substances